=== PATIENT | female | born 1980 | race Caucasian/White ===

== ENCOUNTER 2016-12-01 11:21 | Day surgery (SDC) | payer OTHER ==
[~2016-12-01 11:21] MED LIST: ANCEF/STERILE WATER 2 GM/20 ML IV NR; VERSED IV NR
[2016-12-01] MEDS ORDERED: ZOFRAN IV PRN (11:57)
--- NOTE | 2016-12-01 11:57 | Anesthesia Day of Surgery ---
Anesthesia Day of Surgery - Day of Surgery Patient Examined: Yes Patient H&P Reviewed: Yes Patient is NPO: Yes
[2016-12-01] MEDS ORDERED: PEPCID PO NR (12:00)
[2016-12-01] MEDS ORDERED: NACL 0.9% 1000 ML 1,000 ML IV SCH (12:00)
--- NOTE | 2016-12-01 12:02 | Anesthesia Consultation ---
Anesthesia Consult and Med Hx Date of service: 12/01/16 - Airway Anesthetic Teeth Evaluation: Good ROM Head & Neck: Adequate Mental/Hyoid Distance: Adequate Mallampati Class: Class II Intubation Access Assessment: Probably Good - Pulmonary Exam CTA: Yes - Cardiac Exam Cardiac Exam: RRR - Pre-Operative Health Status ASA Pre-Surgery Classification: ASA2 Proposed Anesthetic Plan: General - Pulmonary Hx Smoking: No Hx Sleep Apnea: No - Central Nervous System Hx Seizures: No Hx Psychiatric Problems: No - Endocrine Hx Renal Disease: No Hx Cirrhosis: No Hx Insulin Dependent Diabetes: No - Other Systems Hx Alcohol Use: No Hx Cancer: No
[2016-12-01] MEDS ORDERED: DIPRIVAN 10 MG/ML IV ONE (12:54)
[2016-12-01] MEDS ORDERED: XYLOCAINE MPF 2% ONE (12:54)
[2016-12-01] MEDS ORDERED: DECADRON ONE (12:54)
[2016-12-01] MEDS ORDERED: ZOFRAN ONE (12:54)
[2016-12-01] MEDS ORDERED: DILAUDID ONE (12:56)
[2016-12-01] MEDS ORDERED: ZEMURON IV ONE (13:35)
[2016-12-01] MEDS ORDERED: QUELICIN ONE (13:35)
[2016-12-01] MEDS ORDERED: MARCAINE 0.25% INFILTRATI ONE (14:01)
[2016-12-01] MEDS ORDERED: NACL 0.9% IR ONE (14:01)
--- NOTE | 2016-12-01 14:34 | Post Operative Note ---
Pre-op diagnosis: Umbilical hernia with incarcerated omentum Post-op diagnosis: same Findings: incarcerated but viable omentu, defect 3cmx 4 cm Procedure: Laproscopic mesh repair umbilical hernia Anesthesia: GETA Surgeon: DIVYA FREITAS Director Of Field Sales: RUBEN SAMANIEGO Estimated blood loss: minimal Pathology: none Condition: stable Disposition: PACU
--- NOTE | 2016-12-01 14:37 | Discharge Summary ---
Short Stay Discharge Plan Weight Bearing Status: Full Weight Bearing Diet: regular Wound: change dressing (after 2 days - october shower daily after 2 days: abdominal binder at all times) Follow up with: MAKENZIE PEDROZA DO [Primary Care Provider] - 7 Days Prescriptions: Ondansetron [Zofran TAB] 4 mg PO Q8HR PRN #20 tablet PRN Reason: Nausea oxyCODONE /ACETAMINOPHEN [Percocet 5/325] 1 tab PO Q4HR PRN #20 tab PRN Reason: Pain , Severe (7-10) traMADol [Ultram 50 MG tab] 50 mg PO Q4HR PRN #20 tablet PRN Reason: Pain
[2016-12-01] MEDS: DILAUDID IV PRN ×2 (15:03→15:15)
[2016-12-01] MEDS ORDERED: PERCOCET 5/325 PO PRN (15:21)
[2016-12-01] MEDS ORDERED: TORADOL IV PRN (15:22)
[2016-12-01] MEDS ORDERED: TORADOL ONE (15:24)
[2016-12-01] MEDS ORDERED: PERCOCET 5/325 ONE (15:25)
[2016-12-01 17:42] VITALS: BP 115/68
--- NOTE | 2016-12-02 08:35 | Post Anesthesia Evaluation ---
- Post Anesthesia Evaluation Patient Participated: Yes Airway Patent: Yes Stable Respiratory Function: Yes Nausea/Vomiting: No Temp > 96.8F: Yes Pain Manageable: Yes Adequeate Hydration: Yes Anesthesia Complications: No Block Receding Appropriately: Not Applicable Patient on Ventilator: No
--- NOTE | 2016-12-10 09:20 | Operative Report ---
Operative Report Operative Report: Date of procedure November Preoperative diagnosis-umbilical hernia with incarcerated omentum Postoperative diagnosis-same Operative procedure-laparoscopic reduction of incarcerated omentum and laparoscopic mesh repair of umbilical hernia Surgeon - Ryne Segovia. surgeon-Braden Hernandez Anesthesia-Gen. endotracheal [id number]-old female presenting with a symptomatic partially reducible umbilical hernia Findings-umbilical hernia defect measuring 3 cm x 3 cm with incarcerated but viable omentum. No bowel involvement. No inguinal hernia evident. Procedure- after satisfactory induction of general endotracheal anesthesia left arm was tucked in operative area was prepped and draped. A left upper quadrant incision was made and a Veress needle was inserted into the peritoneal cavity. After adequate carbon dioxide insufflation up to 15 mmHg an 11 mm trocar were inserted was inserted. Through this a 5 mm 30 angle scope was passed and above findings were noted noted. Under direct visualization a left upper quadrant 5 mm and a left mid lateral 5 mm ports were placed. The incarcerated omentum was reduced with minimal amount of cautery. The preperitoneal fat inferior to the defect was from the fascia for adequate anchoring of the mesh. The defect was covered with the 10 cm x 12 cm proceed mesh. On the left for aspect of the mesh to sutures were placed at the upper and lower end. The mesh was moistened and inserted through the 11 mm trocar. Above the umbilicus a small incision was made and a suture passer needle with the 0 Vicryl was inserted and the defect was narrowed using the vicryl ties at 3 different locations through the same incision. Suture passer needle was again passed under laparoscopic visualization and the mesh was pulled up and securely tied to the anterior abdominal wall. Protackers were placed at the outer border and inner border of the mesh for up for adequate anchoring. Hemostasis was adequate and there was no tension on the mesh. Under direct visualization all the trochars were removed after desufflation. During placement of the mesh and intra-abdominal pressure was decreased to 10 mmHg all the incisions were closed with 4-0 Monocryl sutures. Pressure dressings were placed over the hernia site and patient was extubated and she tolerated the procedure well .
== END 2016-12-01 11:22 | disposition home or self-care (01) ==
LOC: OR 11:21
PROVIDERS: ATTEND Surgery
DX: K42.0 Umbilical hernia with obstruction, without gangrene (principal); K21.9 Gastro-esophageal reflux disease without esophagitis; Z98.890 Other specified postprocedural states
CPT/HCPCS: 49652; 81025; C1781; J0330; J0690; J1100; J1170; J1885; J2250; J2405; J2704; J7030